=== PATIENT | female | born 1945 | race Caucasian/White ===

== ENCOUNTER → 2018-12-26 12:44 | Outpatient (CLI) | payer MEDICARE, BC ==
--- NOTE | 2018-12-27 11:54 | EC ---
PATIENT:ANDREW JEFFRIES DATE OF SERVICE: 12/26/18 SEX: F MEDICAL RECORD: [id number] DATE OF : 47 LOCATION:[facility] AGE OF PATIENT: 73 ADMISSION DATE: 12/26/18 REFERRING PHYSICIAN: INTERPRETING PHYSICIAN: EDUAR GONZALEZ MD ECHOCARDIOGRAM REPORT ECHO CHARGES 4 ECHO COMPLETE Date: 12/26/18 CLINICAL DIAGNOSIS: PALPITATIONS ECHOCARDIOGRAPHIC MEASUREMENTS (adult normal given) AC root (d.<3.7cm) 2.9 cm LV Septum d (<1.2 cm> 1.2 cm Valve Excursion 1.6 cm LV Septum (systole) 1.4 cm Left Atria (s.<4.0cm> 3.7 cm LVPW d(<1.2cm) 1.4 cm RV (d.<2.3cm) 1.7 cm LVPW (sytole) 3.0 cm LV diastole(<5.6CM) 4.3 cm MV E-F(>70mm/sec) cm LV systole 2.8 cm LVOT Diameter 1.6 cm MV exc.(>10mm) 1.0 cm Est.ejection fraction (50-75%) % DOPPLER: LVIT cm/sec A 76.0 cm/sec E 97.0 cm/sec LA cm/sec RVSP 26 mmHg LVOT 108 cm/sec AOP1/2T m/s Asc. Ao 141 cm/sec RVOT 69 cm/sec RA 128 cm/sec PA cm/sec AV Gradient Peak 7.97 mmHg AV Mean 5.04 mmHg AV Area 1.8 cm MV Gradient Peak 4.79 mmHg MV Mean 1.51 mmHg MV Area cm COMMENTS: Bilingual Customer Service: Zora MCKEON Personal Injury Paralegal: 1 Dr. Gonzalez TAPE# Pacs Pericardial Effusion N DATE OF SERVICE: 12/26/2018 PROCEDURE: Echocardiogram. FINDINGS: 1. Left ventricular chamber size is within normal limits. Left ventricular systolic function is normal. Overall ejection fraction estimated at 60%. 2. Left atrium, right atrium, and right ventricle chamber sizes are within normal limits. 3. Valvular structures have normal structure and motion. ECHOCARDIOGRAM REPORT [id number] ANDREW JEFFRIES 4. Doppler interrogation reveals mild mitral regurgitation, mild tricuspid regurgitation, no other valvular insufficiency or stenosis. 5. No evidence of pericardial effusion or left ventricular thrombus. TRANSINT:[id number] Voice Confirmation ID: [id number] DOCUMENT ID: [id number] EDUAR GONZALEZ MD at 1154 CC: [id number] DICTATION DATE: 12/26/18 1538 STOCK WETTER: 12/27/18 0028 DEP CLI 12/26/18 [place] [id number] [place] [id number]
== END | disposition home or self-care (01) ==
LOC: D.HCCARDIO 12:44
PROVIDERS: ATTEND Internal Medicine Interventional Cardiology
DX: R00.2 Palpitations (principal)